=== PATIENT | female | born 1955 | race Caucasian/White ===

== ENCOUNTER 2019-09-06 12:35 | Outpatient (RCR) | payer OTHER, SELFPAY ==
[2019-09-06 12:52] VITALS: BMI 32.9
== END 2019-12-05 23:59 | disposition home or self-care (01) ==
LOC: ANHDMC 12:35
PROVIDERS: PCP Family Medicine; Visit Provider Family Medicine
DX: E66.9 Obesity, unspecified (principal); Z71.3 Dietary counseling and surveillance
CPT/HCPCS: 97802

== ENCOUNTER 2020-02-27 00:54 | Outpatient (CLI) | payer OTHER, SELFPAY ==
[2020-02-27 19:34] LABS: SARS-CoV-2 RNA PCR Negative
== END 2020-02-27 00:55 | disposition home or self-care (01) ==
LOC: ANHCOVIDDT 00:54
PROVIDERS: PCP Family Medicine; Visit Provider Internal Medicine Gastroenterology
DX: Z01.812 Encounter for preprocedural laboratory examination (principal); Z11.59 Encounter for screening for other viral diseases
CPT/HCPCS: 87635; C9803; U0003

== ENCOUNTER 2020-02-29 01:58 | Day surgery (SDC) | payer OTHER, SELFPAY ==
[2020-02-23 10:34] VITALS: BMI 30.2
--- NOTE | 2020-02-27 14:59 | WPDANESEPPF ---
Anes - Initial Pre Proc Eval Procedure: Operation Date: 02/29/20 12:00 Proposed Procedures p Screening Colonoscopy - Rico Velazquez MD Date/Time: 02/27/20 14:59 Surgeon: Rico Velazquez MD Pre Op Diagnosis: Neoplasm Screening Patient Data Age: 65 Gender: F Height: 1.57 m Weight: 75 kg Allergies Allergy/AdvReac Type Severity Reaction Status Date / Time Penicillins Allergy Mild Rash Verified 02/29/20 06:17 Home Medications Medication Instructions Recorded Confirmed Type eluxadoline 100 mg tablet 100 mg PO BID #60 tablet 11/29/19 02/23/20 Rx buspirone 5 mg tablet 5 mg PO BID #60 tablet 12/15/19 02/23/20 Rx sertraline 100 mg tablet 100 mg PO DAILY #90 tablet 01/04/20 02/23/20 Rx omeprazole 40 mg capsule,delayed 40 mg PO DAILY #90 cap 01/31/20 02/23/20 Rx release albuterol sulfate 90 mcg/actuation 1 - 2 inhalation INHALATION Q4-6H 02/13/20 02/23/20 Rx aerosol inhaler PRN #8.5 gm levothyroxine 112 mcg tablet 112 mcg PO DAILY #90 tablet 02/15/20 02/23/20 Rx peg 3350-electrolytes 236 240 ml PO Q10M #4000 ml 02/22/20 Rx gram-22.74 gram-6.74 gram-5.86 gram solution trazodone 25 mg PO HS PRN 02/23/20 02/23/20 History Patient hx anesthesia problems: none Family hx anesthesia problems: none [facility] Past Medical History Medical History (Updated 02/27/20 @ 13:29 by Adria Smith PA-C) Acquired hypothyroidism Anxiety COPD (chronic obstructive pulmonary disease) Depression GERD (gastroesophageal reflux disease) IBS (irritable bowel syndrome) Social History Social History Smoking status: Former smoker Smoking end date: 07/06/13 Alcohol intake: former Substance use: never Substance use type: does not use Gender identity (if verbalized by the patient): Female Spiritual care concerns: No Anes - Eval Final PreProcedure Day of Procedure 02/27/20 14:59 Patient weight: obese Heart: regular rate and rhythm Lungs: clear to auscultation and normal air movement Airway: Mallampati scale class II Neurological: alert and oriented Last oral intake: >/= 8 hours ASA classification: III Emergent: no Anesthetic plan: proceed Anesthesia type and monitoring: general GIVS and standard monitoring Informed Consent: The patient's anesthetic plan and its attendant risks and benefits were discussed with the patient/family/POA. Questions were solicited and answers provided to the satisfaction of the patient/family/POA.
[2020-02-29 06:20] VITALS: BP 141/74; PULSE 58; RESP 16; TEMP 36.8; O2SAT 99; BMI 31.4
[2020-02-29] MEDS: LACTATED RINGERS 1,000 ML 150 ML IV CONT (06:37)
--- NOTE | 2020-02-29 07:31 | PM.HPGS ---
History of Present Illness History of Present Illness Consent: Risks, benefits, and alternatives have been discussed and questions answered. Patient agrees to proceed with procedure. Chief complaint: Neoplasm Screening Narrative: Joycelyn Barone is a 65 year old female with ibs-d on viberzi, still with diarrhea, recently trial of xifaxan but did not help Review of Systems Constitutional: Constitutional: Denies headache(s) and Denies weakness Eyes: Eyes: Denies blurry vision ENT: Reports Normal hearing present, Denies headache(s) and Denies neck pain Cardiovascular: Cardiovascular: Denies chest pain and Denies dyspnea Respiratory: Respiratory: Denies dyspnea Gastrointestinal: Gastrointestinal: Reports no additional gastrointestinal complaints Genitourinary: Genitourinary: Denies dysuria Musculoskeletal: Musculoskeletal: Denies neck pain Integumentary/Breasts: Skin/Breast: Denies dry skin Neurologic: Reports Normal hearing present, Denies headache(s) and Denies weakness Psychiatric: Psychiatric: Denies anxiety Endocrine: Endocrine: Denies change in body appearance Hematologic/Lymphatic: Hematologic/Lymphatic: Denies easy bleeding Allergic/Immunologic: Allergic/Immunologic: Denies urticaria PMF Past Medical History Medical History (Updated 02/27/20 @ 13:29 by Adria Smith PA-C) Acquired hypothyroidism Anxiety COPD (chronic obstructive pulmonary disease) Depression GERD (gastroesophageal reflux disease) IBS (irritable bowel syndrome) Social History Social History Smoking status: Former smoker Smoking end date: 07/06/13 Alcohol intake: former Substance use: never Substance use type: does not use Gender identity (if verbalized by the patient): Female Spiritual care concerns: No Meds Home Medications and Allergies Home Medications Medication Instructions Recorded Confirmed Type eluxadoline 100 mg tablet 100 mg PO BID #60 tablet 11/29/19 02/23/20 Rx buspirone 5 mg tablet 5 mg PO BID #60 tablet 12/15/19 02/23/20 Rx sertraline 100 mg tablet 100 mg PO DAILY #90 tablet 01/04/20 02/23/20 Rx omeprazole 40 mg capsule,delayed 40 mg PO DAILY #90 cap 01/31/20 02/23/20 Rx release albuterol sulfate 90 mcg/actuation 1 - 2 inhalation INHALATION Q4-6H 02/13/20 02/23/20 Rx aerosol inhaler PRN #8.5 gm levothyroxine 112 mcg tablet 112 mcg PO DAILY #90 tablet 02/15/20 02/23/20 Rx peg 3350-electrolytes 236 240 ml PO Q10M #4000 ml 02/22/20 Rx gram-22.74 gram-6.74 gram-5.86 gram solution trazodone 25 mg PO HS PRN 02/23/20 02/23/20 History Allergies Allergy/AdvReac Type Severity Reaction Status Date / Time Penicillins Allergy Mild Rash Verified 02/29/20 06:17 Vital Signs Vital Signs - 24 hr 02/29/20 06:20 Temperature 98.3 F Pulse Rate 58 L Respiratory Rate 16 Blood Pressure 141/74 H Pulse Oximetry 99 Exam Const: General: comfortable and no acute distress HENMT: General nose exam: Normal nares present Eyes: General: appearance normal, both eyes and all related structures Neck: Neck: no JVD Resp: Auscultation: clear to auscultation bilaterally Cardio: Rate: regular rate Rhythm: regular rhythm GI: Inspection: non-distended GI Palp: Yes Soft to palpation Skin: General skin exam: normal color Neuro: General: gait normal Speech: normal speech Extrem: General: normal to inspection Psych: Mental Status: mental status grossly normal Assessment and Plan Assessment and plan (1) IBS (irritable bowel syndrome): Code(s): K58.9 - Irritable bowel syndrome without diarrhea Status: Acute Assessment and Plan: will proceed with colonoscopy (2) Diarrhea: Code(s): R19.7 - Diarrhea, unspecified Status: Acute
[2020-02-29 07:47] VITALS: BP 107/71; PULSE 72; RESP 16; O2SAT 96
[2020-02-29 07:57] VITALS: BP 116/74; PULSE 52; RESP 15; O2SAT 100
[2020-02-29 08:07] VITALS: BP 144/87; PULSE 50; RESP 15; O2SAT 100
== END 2020-02-29 08:33 | disposition home or self-care (01) ==
PROVIDERS: PCP Family Medicine; Visit Provider Internal Medicine Gastroenterology
PROC: 0DJD8ZZ Inspection of Lower Intestinal Tract, Via Natural or Artificial Opening Endoscopic (ICD-10-PCS; CPT 45378; principal; 2020-02-29 07:30)
DX: K58.0 Irritable bowel syndrome with diarrhea (principal); D12.4 Benign neoplasm of descending colon; K57.30 Diverticulosis of large intestine without perforation or abscess without bleeding; K64.8 Other hemorrhoids; J44.9 Chronic obstructive pulmonary disease, unspecified; F32.9 Major depressive disorder, single episode, unspecified; K21.9 Gastro-esophageal reflux disease without esophagitis; E03.9 Hypothyroidism, unspecified; F41.9 Anxiety disorder, unspecified; Z79.899 Other long term (current) drug therapy
CPT/HCPCS: 45380; 45385; 88305; J2704; J7120

== ENCOUNTER → 2020-03-05 09:36 | Outpatient (CLI) | payer OTHER, SELFPAY ==
--- NOTE | ~2020-03-05 | CT_ITS ---
EXAMINATION:CT lung screening DATE: 03/05/2020 09:50 INDICATION: Personal history of tobacco dependence. Smoker who quit 5 years ago with 35 pack year his tory. TECHNIQUE: Computed tomography (CT) of the chest was performed without intravenous contrast. Automate d exposure control and iterative reconstruction technique were employed. The dose-length product (DLP ) was 116.03 mGy-cm. COMPARISON: Chest CT 08/19/2018 FINDINGS: There is mild atelectasis bilaterally. No pleural effusion. The heart size is normal. There are coronary artery calcifications. No pericardial effusion. There is levocurvature of upper thoraci c spine and dextrocurvature of lower thoracic spine. There is moderate thoracic spondylosis. IMPRESSION: 1. Lung-RADS category 1: Negative. Continue annual screening with noncontrast low-dose chest CT in 12 months. Reviewed, dictated and finalized at location A. IMPRESSION: 1. Lung-RADS category 1: Negative. Continue annual screening with noncontrast l ow-dose chest CT in 12 months.
== END ==
PROVIDERS: PCP Family Medicine; Visit Provider Physician Assistant
DX: Z12.2 Encounter for screening for malignant neoplasm of respiratory organs (principal); Z87.891 Personal history of nicotine dependence
CPT/HCPCS: G0297

== ENCOUNTER 2021-07-08 14:07 | Outpatient (CLI) | payer OTHER, SELFPAY ==
--- NOTE | ~2021-07-08 | MM_ITS ---
EXAMINATION: MM screening [facility] BI w esa HISTORY: Screening mammogram TECHNIQUE: Craniocaudal and mediolateral oblique 3-D tomosynthesis images were obtained and synthetic 2-D images were generated. CAD analysis was submitted and interpreted. COMPARISON: 04/24/2018, 01/20/2017, 08/21/2014 BREAST PARENCHYMAL COMPOSITION: There are scattered areas of fibroglandular density. FINDINGS: There is no evidence of suspicious mass, calcification, or architectural distortion to sugg est malignancy in either breast. There has been no suspicious interval change. IMPRESSION: 1. No mammographic evidence of malignancy. 2. Recommend routine screening mammography in one year. BI-RADS Category 1: Negative Reviewed, dictated and finalized at location A. 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
== END 2021-07-08 14:08 | disposition home or self-care (01) ==
LOC: ANHIMG 14:10
PROVIDERS: PCP Hospitalist; Visit Provider Hospitalist
DX: Z12.31 Encounter for screening mammogram for malignant neoplasm of breast (principal)
CPT/HCPCS: 77063; 77067

== ENCOUNTER 2024-07-29 11:07 | Outpatient (CLI) | payer OTHER, SELFPAY ==
--- NOTE | ~2024-07-29 | MR_ITS ---
EXAMINATION: MR lumbar spine wo con DATE: 07/29/2024 11:33 INDICATION: Lumbar radiculopathy TECHNIQUE: Magnetic resonance imaging (MRI) of the lumbar spine was performed without intravenous con trast. Sequences included sagittal T2-weighted FSE, sagittal T2-weighted FS FSE, sagittal T1-weighted FSE, and axial T2-weighted FSE. COMPARISON: None FINDINGS: 15 degrees thoracolumbar levoscoliosis and 15 degrees lumbar dextroscoliosis. Sagittal alignment is n ormal. Vertebral body heights are normal. There is severe right-sided predominant disc height loss wi th associated right-sided fibrovascular and fibrofatty degenerative endplate changes at both T12-L1 a nd L1-L2. Marrow signal is otherwise normal. Moderate disc height loss at L2-L3, mild to severe left- sided disc height loss at L3-L4 and mild disc height loss at L4-L5 and at the right side of L5-S1. Th e conus medullaris terminates at L1-L2. There is normal signal in the caudal spinal cord. Paravertebr al soft tissues are unremarkable. The following disc levels are specifically discussed: T12-L1: Disc is bulging. There is moderate left and severe right facet joint osteoarthritis. There is mild right neural foraminal stenosis. There is mild central canal stenosis. L1-L2: Disc is bulging. There is moderate bilateral facet joint osteoarthritis. There is moderate edinson ateral neural foraminal stenosis. There is mild central canal stenosis. L2-L3: Disc is bulging. There is mild right and moderate left facet joint osteoarthritis. There is mi ld right and moderate left neural foraminal stenosis. There is mild central canal stenosis. L3-L4: Disc is bulging. There is hypertrophy of the ligamentum flavum. There is moderate right and s evere left facet joint osteoarthritis. There is mild right and moderate left neural foraminal stenosi s. There is mild central canal stenosis. L4-L5: Disc is bulging. There is hypertrophy of the ligamentum flavum. There is severe bilateral face t joint osteoarthritis. There is moderate bilateral neural foraminal stenosis. There is severe centra l canal stenosis. L5-S1: Disc is bulging with annular fissure. There is moderate left and severe right facet joint oste oarthritis. There is moderate right and minimal left neural foraminal stenosis. There is mild central canal stenosis. IMPRESSION: 1. Mild S-shaped lumbar scoliosis with severe spondylosis. Reviewed, dictated and finalized at location A. 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
== END 2024-07-29 11:08 | disposition home or self-care (01) ==
PROVIDERS: PCP Hospitalist; Visit Provider Nurse Practitioner Family
DX: M41.86 Other forms of scoliosis, lumbar region (principal); M47.816 Spondylosis without myelopathy or radiculopathy, lumbar region
CPT/HCPCS: 72148

== ENCOUNTER 2024-12-08 07:12 | Outpatient (CLI) | payer OTHER, SELFPAY ==
--- NOTE | ~2024-12-08 | MM_ITS ---
EXAMINATION: MM screening [facility] BI w esa HISTORY: Screening mammogram TECHNIQUE: Craniocaudal and mediolateral oblique 3-D tomosynthesis images were obtained and synthetic 2-D images were generated. CAD analysis was submitted and interpreted. COMPARISON: 07/08/2021 through 08/15/2013 BREAST PARENCHYMAL COMPOSITION: The breasts are almost entirely fatty. FINDINGS: There is no evidence of suspicious mass, calcification, or architectural distortion to sugg est malignancy in either breast. There has been no suspicious interval change. IMPRESSION: 1. No mammographic evidence of malignancy. 2. Recommend routine screening mammography in one year. BI-RADS Category 1: Negative Reviewed, dictated and finalized at location B.
== END 2024-12-08 07:13 | disposition home or self-care (01) ==
LOC: MICIMG 07:12
PROVIDERS: PCP Hospitalist; Visit Provider Hospitalist
DX: Z12.31 Encounter for screening mammogram for malignant neoplasm of breast (principal)
CPT/HCPCS: 77063; 77067